=== PATIENT | female | born 1995 | race Caucasian/White ===

== ENCOUNTER 2018-09-12 09:47 | Inpatient (IN) | payer BC, MEDICAID ==
[2018-09-12] MEDS ORDERED: LIDOCAINE HCL 50 ML VIAL PERI PRN (18:30)
[2018-09-12] MEDS ORDERED: NALBUPHINE HCL 10 MG/ML AMPUL IV PRN ×2 (18:30)
[2018-09-12] MEDS ORDERED: OXYTOCIN/DEXTROSE 5%-WATER 30 UNITS/500 ML BAG IV ONE (18:30)
[2018-09-12] MEDS ORDERED: RINGER'S SOLUTION,LACTATED 1,000 ML IV ONE (18:30)
[2018-09-12] MEDS ORDERED: ONDANSETRON HCL/PF 2 MG/ML VIAL IV PRN (18:30)
[2018-09-12 19:16] LABS: Cocaine Ur Negative (NEGATIVE); Urine Barbiturate Negative (NEGATIVE); Urine Benzodiazepines Negative (NEGATIVE); Urine Opiates Negative (NEGATIVE); Urine PCP Negative (NEGATIVE); Urine THC Negative (NEGATIVE)
[2018-09-12] MEDS: RINGER'S SOLUTION,LACTATED 1,000 ML IV PRN (19:47)
[2018-09-12] MEDS: VANCOMYCIN HCL 1 GM in DEXTROSE 5 % IN WATER 250 ML IV SCH ×2 (19:48)
[2018-09-12] MEDS: MISOPROSTOL 100 MCG TABLET VG PRN (20:04)
[2018-09-13] MEDS: MISOPROSTOL 100 MCG TABLET VG PRN (00:12)
[2018-09-13] MEDS: RINGER'S SOLUTION,LACTATED 1,000 ML IV PRN (03:34)
[2018-09-13] MEDS: VANCOMYCIN HCL 1 GM in DEXTROSE 5 % IN WATER 250 ML IV SCH ×6 (08:17→23:03)
--- NOTE | 2018-09-13 09:04 | PN ---
Progess Note - Interim Date: 09/13/18 Time: 09:02 Narrative: 09/13/18 09:02 For H&P see last office note Pt without complaints cvx 2.5/70/-2 AROM for clear fluid Pitocin currently at 6 milliunits/min. Continue to titrate pitocin up FHT cat 1
[2018-09-13] MEDS ORDERED: BUPIVACAINE HCL/0.9 % NACL/PF 250 ML EP PRN (10:04)
[2018-09-13] MEDS ORDERED: NALOXONE HCL 1 MG/1 ML SYRG IV PRN (10:04)
[2018-09-13] MEDS ORDERED: ONDANSETRON HCL/PF 2 MG/ML VIAL IV PRN (10:04)
[2018-09-13] MEDS ORDERED: fentaNYL CITRATE/PF 50 MCG/ML AMPUL IT SCH (10:15)
--- NOTE | 2018-09-13 10:43 | ANES ---
Anesthesia Pre Procedure Eval Vitals/Labs: Last Vital Signs Temp 36.6 C 09/12/18 18:30 Pulse 97 09/12/18 18:30 Resp 18 09/12/18 18:30 BP 124/72 09/12/18 18:30 Pulse Ox 99 09/12/18 18:30 HOME MEDICATIONS vitamin,calcium,stjflkpg-[id number]-uqtte acid tablet 1 tab PO DAILY 08/01/18 [Last Taken Unknown] Calcium Carbonate [Tums] 2 tab.chew PO QID PRN 09/12/18 [Last Taken Unknown] Allergies/Adverse Reactions: Allergies Allergy/AdvReac Type Severity Reaction Status Date / Time Penicillins Allergy Unknown Verified 09/12/18 18:46 shellfish derived AdvReac Swelling Verified 09/12/18 18:46 (Other) - Planned Procedure Planned Procedure: ELECTIVE INDUCTION Medication List Reviewed:: Yes Allergies Verified: Yes Medical History (Last Reviewed 09/13/18 @ 10:42 by Kale Arias CRNA) Anemia Anxiety Asthma No hospitalizations Depression Dysmenorrhea Ovarian cyst Onset Date: ~2012 Left UTI (urinary tract infection) Surgical History (Last Reviewed 09/13/18 @ 10:42 by Kale Arias CRNA) No pertinent past surgical history Family History (Last Reviewed 09/13/18 @ 10:43 by Kale Arias CRNA) Father A-fib CHF (congestive heart failure) Mother Unknown family medical history - Family Anesthesia History Family History:: no untoward family reactions to anesthesia - Airway/Neck/Teeth Within Normal Limits:: Yes Teeth Condition: Intact Mallampatti Score: 2 Thyromental (T-M) distance: > 6 cm Mandibulo Hyoid distance: > 3 cm - Respiratory Respiratory: lungs clear, normal breath sounds Smoking Status: Never smoker Sleep Apnea currently treated: No Sleep Apnea by current assessment: No - Cardiovascular Patient History - Cardiac/Respiratory: No pertinent hx Tolerates Activity: Good Heart Sounds: S1 & S2, Regular - Anesthesia Assessment and Plan ASA Class: PS, II, E Anesthesia Type Plan: Epidural
--- NOTE | 2018-09-13 10:44 | ANES ---
Post Anesthesia Discharge - Transfer of Care Transfer of Care handoff given to nurse: Yes - Anesthesia Post Op Note Anesthesia Post Op Note: Care transferred to OB RN
--- NOTE | 2018-09-13 10:44 | ANES ---
Post Anesthesia Assessment - Vital Signs Vitals: Last Vital Signs Temp 36.6 C 09/12/18 18:30 Pulse 97 09/12/18 18:30 Resp 18 09/12/18 18:30 BP 124/72 09/12/18 18:30 Pulse Ox 99 09/12/18 18:30 Airway Patency: Normal - Mental Status Level Of Consciousness: Awake - Pain Level Pain Score: 2 - N/V Assessment Nausea/Vomiting Presence: None Dehydration:: No
--- NOTE | 2018-09-13 10:46 | ANES ---
Anesthesia Procedure Note Procedure Note: ANESTHESIA PROCEDURE NOTE Date of Procedure: [] 09/13/2018 Time of procedure:[]. 1030 Performed by: Ebenezer Arias CRNA C Java Developer: None. Preprocedure diagnosis: Active labor. Post procedure diagnosis: Same. Procedure: Insertion of labor epidural. Indications: The patient is a [22] -year-old [prima para] female in active labor requesting labor epidural for pain management. Findings: See below. Details of the procedure: The patient was placed in a sitting position. Back was prepped with DuraPrep. Patient was then draped in a sterile fashion. Lidocaine 1% was infiltrated to the skin and subcutaneous tissues at the level of the L3 4 interspace. The epidural space was identified using a 18-gauge Tuohy needle with [id number] technique. 20 mcg fentanyl was given intrathecally using a 27 ga. spinal needle. Epidural catheter was inserted without difficulty. Negative test dose was elicited using 5 mL of 1.5% preservative-free lidocaine plus epinephrine 1 200,000. The epidural catheter was then taped and secured in place. EBL: Minimal. Fluids: N/A. Specimen: N/A. Post procedure condition: The patient tolerated the procedure well. No complications were noted. Thank you for this consultation. Harden CRNA
[2018-09-13] MEDS ORDERED: BENZOCAINE/MENTHOL 81 SPRAY CAN TP PRN (19:47)
[2018-09-13] MEDS ORDERED: BISACODYL 10 MG SUPP.RECT RC PRN (19:47)
[2018-09-13] MEDS ORDERED: OXYTOCIN/DEXTROSE 5%-WATER 30 UNITS/500 ML BAG IV ONE (19:47)
[2018-09-13] MEDS ORDERED: SENNOSIDES 8.6 MG TABLET PO PRN (19:47)
[2018-09-13] MEDS ORDERED: HYDROCORTISONE 30 APPL TUBE TP PRN (19:47)
[2018-09-13] MEDS ORDERED: IBUPROFEN 800 MG TABLET PO PRN (19:47)
[2018-09-13] MEDS ORDERED: oxyCODONE HCL/ACETAMINOPHEN 1 TAB TABLET PO PRN ×2 (19:47)
[2018-09-13] MEDS ORDERED: GLYCERIN/WITCH HAZEL LEAF 40 APPL BOX TP PRN (19:47)
[2018-09-13] MEDS ORDERED: diphenhydrAMINE HCL 25 MG CAPSULE PO PRN (19:47)
--- NOTE | 2018-09-13 19:53 | OR ---
Operative Report - Dictated Report Narrative: Date of delivery: 09/13/2018 Time of delivery: 1931 Gender: female weight: 3144 grams APGARS 9/9 The patient is a 22 year old @ 39w 1d who presented to L&D for an elective IOL. She progressed to complete dilation. She delivered a viable female infant in the NANI presentation over an intact perineum. Cord clamping was delayed for 60 seconds. The placenta was delivered by expression and appeared intact. There were bilateral labial lacerations. The right labial laceration was repaired with 4-0 vicryl for hemostasis. The left labial laceration was not repaired because it was hemostatic. EBL: 150 mL Lacerations: bilateral labial of which the right was repaired in the standard surgical fashion Complications: none ` Definition: * The number of deliveries resulting in a live the patient experienced prior to current hospitalization * The previous delivery of live twins or any live multiple gestation is considered one live event. *If primagravida or nulliparous is documented select zero for the number of previous live births. Live Births: 0
[2018-09-13] MEDS: DOCUSATE SODIUM 100 MG CAPSULE PO SCH (23:04)
[2018-09-14] MEDS: DOCUSATE SODIUM 100 MG CAPSULE PO SCH ×2 (10:24→20:35)
--- NOTE | 2018-09-14 11:48 | PN ---
Subjective - Date and Time Seen Date: 09/14/18 Time: 11:46 Subjective Narrative: Pt without complaints. VB is normal Objective Objective Narrative: See vital signs - Review of Systems Generalized/Overall Review: Reports: No Symptoms Reported Misc: All systems neg except as marked - Vitals Vitals: Last Vital Signs Temp 36.1 C 09/14/18 08:00 Pulse 78 09/14/18 08:00 Resp 18 09/14/18 08:00 BP 134/75 09/14/18 08:00 Pulse Ox 98 09/14/18 08:00 - Exam Constitutional: Present: Alert, Oriented x3, Cooperative, No distress Abdomen: Present: soft, nontender, nondistended - fundus is firm Extremity: Present: non-tender, no calf tenderness, pedal edema Skin Exam: Present: normal color, warm/dry, no cyanosis Appearance: Present: appropriate appearance Eye contact: Present: cooperative Thoughts: Present: normal thought pattern Cauti Physician Documentation - Urinary Catheter Management Urethral (Aggarwal) Urethral Indwelling: No Date of Removal: 09/13/18 Time of Removal: 19:15 Assessment/Plan Plan Narrative: PPD 1 s/p Doing well Discharge tomorrow
[2018-09-15 08:46] VITALS: BP 114/67
[2018-09-15] MEDS: DOCUSATE SODIUM 100 MG CAPSULE PO SCH (10:05)
--- NOTE | 2018-09-15 10:15 | PN ---
Subjective - Date and Time Seen Date: 09/15/18 Time: 10:14 Subjective Narrative: Pt without complaints. VB is normal Objective Objective Narrative: See vital signs - Review of Systems Generalized/Overall Review: Reports: No Symptoms Reported Misc: All systems neg except as marked - Vitals Vitals: Last Vital Signs Temp 36.2 C 09/15/18 08:00 Pulse 69 09/15/18 08:00 Resp 18 09/15/18 08:00 BP 114/67 09/15/18 08:00 Pulse Ox 98 09/15/18 08:00 - Exam Constitutional: Present: Alert, Oriented x3, Cooperative, No distress Abdomen: Present: soft, nontender, nondistended - fundus is firm Extremity: Present: non-tender, no calf tenderness, pedal edema Skin Exam: Present: normal color, warm/dry, no cyanosis Appearance: Present: appropriate appearance Eye contact: Present: cooperative Thoughts: Present: normal thought pattern Cauti Physician Documentation - Urinary Catheter Management Urethral (Aggarwal) Urethral Indwelling: No Date of Removal: 09/13/18 Time of Removal: 19:15 Assessment/Plan Plan Narrative: PPD 2 s/p Doing well Discharge home
== END 2018-09-15 13:30 | disposition home or self-care (01) | DRG 807 ==
LOC: OB 18:15
PROVIDERS: ADMIT Obstetrics & Gynecology; ATTEND Obstetrics & Gynecology
CPT/HCPCS: 59025; 80307; 86850; 86900; G0479